=== PATIENT | male | born 1970 | race Caucasian/White ===

== ENCOUNTER → 2021-08-23 12:09 | Outpatient (CLI) | payer OTHER, SELFPAY ==
--- NOTE | 2021-08-23 | DI.RAD.S_ITS ---
PROCEDURE: XR KNEE LT 3V INDICATIONS: Left Knee Pain TECHNIQUE: 3 views of the knee were acquired. COMPARISON: None. FINDINGS: Bones: No fractures or dislocations. No suspicious bony lesions. Mild degenerative joint disease. Soft tissues: Small to moderate joint effusion. No suspicious soft tissue calcifications. IMPRESSION: 1. No acute osseous abnormalities. 2. Mild degenerative joint disease. 3. Small to moderate knee joint effusion. Dictated by: Derek Rodrigues M.D. on 08/23/2021 at 16:18 Approved by: Derek Rodrigues M.D. on 08/23/2021 at 16:19
== END ==
PROVIDERS: Referring Provider Physician Assistant; Visit Provider Physician Assistant
DX: M25.562 Pain in left knee (principal); M17.12 Unilateral primary osteoarthritis, left knee; M25.462 Effusion, left knee
CPT/HCPCS: 73562